=== PATIENT | male | born 1950 | race Caucasian/White ===

== ENCOUNTER 2016-04-28 14:31 | Emergency (ER) | payer OTHER ==
[~2016-04-28] VITALS: Ht 177.8 cm; Wt 74.8 kg
--- NOTE | 2016-04-28 17:12 | ED SKIN/ALLERGY COMPLAINT ---
History of Present Illness General Chief Complaint: Skin Rash/ Abcess Stated Complaint: CYST Source: patient, family () Exam Limitations: no limitations Vital Signs & Intake/Output Vital Signs & Intake/Output Vital Signs Date Time Temp Pulse Resp B/P Pulse O2 O2 Flow FiO2 Ox Delivery Rate 04/28 1722 97.2 50 15 152/94 97 Room Air Room Air 04/28 1721 Room Air Room Air 04/28 1441 97.9 77 20 158/99 98 Room Air Allergies Coded Allergies: No Known Allergies (04/28/16) Triage Note: TRIAGE: PT TO ER C/C WORSENING CYST TO R UPPER BACK. WAS SEEN AT [facility] DR [place]AMO IN [place] YESTERDAY FOR SAME AND STARTED ON KEFLEX AND BACTRIM BUT HAS ONLY TAKEN THE KEFLEX. STATES THE PHARMACIST QUESTIONED WHY HE WAS GIVEN BOTH ANTIBIOTICS BUT WAS UNABLE TO GET IN TOUCH WITH PHYSICIAN TO CONFIRM SO HAS ONLY TAKEN THE KEFLEX. WAS ALSO GIVEN MUPIROCIN CREAM. WAS TOLD IF IT DIDN'T LOOK ANY BETTER BY TODAY TO GO TO ER AND STATES IT DOESN'T LOOK ANY BETTER BUT STATES IT DOESN'T LOOK WORSE EITHER. Triage Nurses Notes Reviewed? yes HPI: This patient is a 65-year-old male who presented to the emergency department today accompanied by his for evaluation of cyst. The patient reported that he has had this cyst on his right upper back for the last 10 years. His reported that this weekend it, "burst." They reported that yesterday he went to his primary care physician. He was going to cut it open, but then did not. They reported that he was put on Bactrim and Keflex. The patient did not start taking the Bactrim, but did take the Keflex. They are also asking patient see a general surgeon as his primary care physician mentioned this, but then never referred him to anybody. The patient denied any pain unless the area is touched. He denied any spreading of redness around the wound site. No fevers, chills, chest pain, difficulty breathing. The patient's reported that she, "got most of it out," over the weekend. Past History Travel History Traveled to [place] past 21 day No Medical History Any Pertinent Medical History? see below for history Neurological: NONE EENT: NONE Cardiovascular: hypertension Respiratory: NONE Gastrointestinal: NONE Hepatic: NONE Renal: NONE Musculoskeletal: NONE Psychiatric: NONE Endocrine: NONE Blood Disorders: NONE Cancer(s): NONE [employer]/Reproductive: NONE Surgical History Surgical History: non-contributory Psychosocial History What is your primary language Sinhala Tobacco Use: Current Daily Use Daily Tobacco Use Amount/Type: => 5 Cigarettes daily ETOH Use: occasional use Illicit Drug Use: denies illicit drug use Family History Hx Contributory? No Review of Systems Review of Systems Constitutional: Reports: no symptoms. EENTM: Reports: no symptoms. Respiratory: Reports: no symptoms. Cardiovascular: Reports: no symptoms. GI: Reports: no symptoms. Genitourinary: Reports: no symptoms. Musculoskeletal: Reports: no symptoms. Skin: Reports: see HPI. Neurological/Psychological: Reports: no symptoms. All Other Systems: Reviewed and Negative Physical Exam Physical Exam General Appearance: well developed/nourished, no apparent distress, alert, awake Comments: Well-developed well-nourished person in no acute distress HEENT: Head normocephalic, moist mucous membranes Neck: Supple, no lymphadenopathy Back: Normal gait Respiratory: No respiratory distress. Speaking in full sentences Extremities: No edema, full range of motion Neuro: Alert and oriented x3 Psych: Mood affect normal, normal memory normal judgment. Skin: Warm and dry, no rash on exposed skin. Approximately 1 cm in greatest diameter, open, draining wound with approximately 2 cm greatest diameter surrounding erythema. Induration with no fluctuance. Mildly tender to palpation. Mild amount of purulent drainage. No bleeding. Progress Differential Diagnosis: abscess/cellulitis, contact dermatitis, drug reaction, erythema multiforme Plan of Care: Orders Procedure Date/time Status TRUNK AREA CULTURE 04/28 1710 Active Microbiology 04/28 1713 TRUNK: Culture & Sensitivity - RECD 04/28 1713 TRUNK: Gram Stain - RECD Comments: this patient is a 65-year-old male who presented to the emergency department today for evaluation of an open, draining abscess. The patient is currently on Bactrim and Keflex. No drainable fluid collection noted on physical examination. I prepped the wound with Betadine, irrigated the wound extensively , apply bacitracin, and applied a sterile dressing. I instructed the patient and his to keep the wound site clean and dry. They were instructed to return for any fevers or signs of infection. I instructed them to take both antibiotics and for the full duration of the antibiotic course. Stable for discharge home. Departure Departure Disposition: HOME OR SELF CARE Condition: Stable Clinical Impression Primary Impression: Abscess Referrals: UNKNOWN (PCP/Family) Additional Instructions: Please keep the wound site clean and dry. Continue to take your previously prescribed Bactrim and Keflex as directed and for the full duration of antibiotics. You may reapply bacitracin to the wound as needed. Return to the emergency department for any worsening symptoms, fevers, chills, spreading of redness around the wound site, or for any other concerns. Departure Forms: Customer Survey General Discharge Information
[2016-04-28 17:22] VITALS: BP 152/94
== END 2016-04-28 17:24 ==
LOC: ERH 14:31
DX: L02.212 Cutaneous abscess of back [any part, except buttock and flank] (principal)
CPT/HCPCS: 87070